=== PATIENT | female | born 1965 | race Caucasian/White ===

== ENCOUNTER 2016-04-01 08:58 | Outpatient (CLI) | payer OTHER | END 2016-04-01 23:00 | LOC: RT SRH 08:58 | DX: R06.02 Shortness of breath (principal); R07.9 Chest pain, unspecified ==

== ENCOUNTER 2016-04-02 09:46 | Outpatient (CLI) | payer OTHER ==
--- NOTE | 2016-04-02 10:50 | DIAGNOSTIC IMAGING REPORT ---
PROCEDURE: US ABDOMEN ULTRASOUND-COMPLETE INDICATION: ELEVATED LFT TECHNIQUE: Diaz scale and color Doppler sonographic images of the abdomen were obtained without comparison. COMPARISON: None. FINDINGS: The liver is normal in size, contour, but demonstrates increased echogenicity. No mass or intrahepatic biliary dilatation. The gallbladder is normal without stones or sludge. The wall is normal thickness measuring 2 mm No pericholecystic fluid or Grace sign. The extrahepatic common duct is normal measuring 2.4 mm The visualized pancreas is normal without ductal dilatation or peripancreatic fluid collection. The abdominal aorta is normal in its course and caliber. The retrohepatic inferior vena cava is patent. There is appropriate hepatopetal flow in the portal vein. The right kidney measures 10.9 cm in length. The left kidney measures 10.9 cm in length. Both kidneys demonstrate normal morphology and cortical thickness without hydronephrosis, cyst, solid mass, or shadowing calculus. Color Doppler imaging demonstrates normal blood flow in each kidney. The spleen is normal in size measuring 11.8 cm in length. There is no perihepatic or perisplenic ascites. IMPRESSION: 1. Fatty liver.
--- NOTE | 2016-04-02 12:10 | DIAGNOSTIC IMAGING REPORT ---
PROCEDURE: MR BRAIN W/WO CONTRAST INDICATION: FREQUENT MIGRAINE TECHNIQUE: Noncontrast T1 sagittal and T2 coronal images of the brain. T2, FLAIR, gradient and diffusion axial images with ADC map. Pregadolinium thin-cut T1 sagittal and coronal images of the pituitary fossa. Following 17 ml of intravenous gadolinium, thin-cut T1 sagittal and coronal images of the pituitary fossa were obtained followed by FAT-SAT T1 axial images of the brain. COMPARISON: None. FINDINGS: Sulci, ventricular system and brain parenchyma are normal. No evidence of an acute CVA, hemorrhage, mass or abnormal enhancement. Normal vascular flow voids. Orbits are unremarkable. Mastoids and sinuses are clear. IMPRESSION: 1. Normal brain MRI.
== END 2016-04-02 23:00 ==
LOC: US SRH 09:46
DX: K76.0 Fatty (change of) liver, not elsewhere classified (principal); G43.909 Migraine, unspecified, not intractable, without status migrainosus